=== PATIENT | female | born 1940 | race African-American/Black ===

== ENCOUNTER 2021-01-25 17:15 | Emergency (ER) | payer OTHER, MEDICAID ==
[~2021-01-25] VITALS: Ht 152.4 cm; Wt 83.5 kg
--- NOTE | 2021-01-25 17:16 | NUR ---
PATIENT TAKEN TO ER BED 9
[2021-01-25 17:26] VITALS: BP 131/45
--- NOTE | 2021-01-25 17:26 | NUR ---
Dr. Alcantara is evaluating the patient at bedside.
--- NOTE | 2021-01-25 17:36 | NUR ---
80/F biba from home with c/o shakiness. Patient states she began feeling shaky and "unwell" at home and attempted to check her blood sugar but states she was unable to. Patient became worrisome and called 911, per EMS patients blood sugar was 352 on scene. Patient denies pain but states she still feels unwell, blood sugar upon arrival 352. Patient placed in gown on bedside groundwater monitoring technician, patient alert and oriented x4, showing no signs of hyperglycemia, Dr. Alcantara aware of patient condition.
--- NOTE | 2021-01-25 18:02 | NUR ---
Labs collected bedside and handed to agricultural labor camp manager.
[2021-01-25 18:31] LABS: BASOPHILS # (AUTO) 0.1 K/uL (0.00-0.22); EOSINOPHILS # (AUTO) 0.1 K/uL (0-0.4); EOSINOPHILS % (AUTO) 2.6 % (0.0-4.0); HEMATOCRIT 35.5 % (36-48); HEMOGLOBIN 11.6 g/dL (12.0-16.0); LYMPHOCYTES % (AUTO) 20.5 % (20.5-51.1); MEAN CORPUSCULAR HEMOGLOBIN 30 pg (27-31); MEAN CORPUSCULAR HGB CONC 33 g/dL (33-37); MEAN CORPUSCULAR VOLUME 91.4 fL (80-94); MONOCYTES # (AUTO) 0.4 K/uL (0.8-1.0); MONOCYTES % (AUTO) 8.1 % (1.7-9.3); NEUTROPHILS # (AUTO) 3.5 K/uL (1.8-7.7); NEUTROPHILS % (AUTO) 67.8 % (42.2-75.2); PLATELET COUNT (AUTO) 181 K/uL (140-450); RED BLOOD CELL COUNT(AUTO) 3.88 MIL/uL (4.20-5.40); RED CELL DISTRIBUTION WIDTH 13.6 % (11.6-13.7); WHITE BLOOD COUNT (AUTO) 5.1 K/uL (4.8-10.8)
[2021-01-25 19:01] LABS: ALBUMIN 3.8 g/dL (3.4-5.0); ASPARTATE AMINOTRANSFERASE 13 U/L (15-37); CARBON DIOXIDE 30.1 mmol/L (21-32); CHLORIDE 102 mmol/L (98-107); CREATININE 1.5 mg/dL (0.6-1.3); GLUCOSE 316 mg/dL (74-106); POTASSIUM 4.1 mmol/L (3.5-5.1); SODIUM SERUM 139 mmol/L (136-145); TOTAL BILIRUBIN 0.2 mg/dL (0.0-1.0); UREA NITROGEN, BLOOD 40 mg/dL (7-18)
[2021-01-25 19:28] LABS: ACETONE, SERUM NEGATIVE (NEGATIVE)
--- NOTE | 2021-01-25 19:30 | NUR ---
RECEIVED REPORT FROM TAHIR GALDAMEZ FOR CONTINUITY OF CARE AT THIS TIME
[2021-01-25] MEDS ORDERED: cefTRIAXone 1,000 MG in LIDOCAINE MPF 1% 2.1 ML IM ONE (19:45)
[2021-01-25] MEDS ORDERED: CEPH-588 PO (20:05)
[2021-01-25] MEDS ORDERED: LIDOCAINE MPF 1% 5 ML ONE (20:08)
[2021-01-25] MEDS ORDERED: cefTRIAXone 1,000 MG VIAL ONE (20:08)
[2021-01-25 20:13] LABS: APPEARANCE,URINE SL CLOUDY (CLEAR); BILIRUBIN,URINE NEGATIVE (NEGATIVE); BLOOD, URINE TRACE-I (NEGATIVE); COLOR,URINE YELLOW (YELLOW); LEUKOCYTE ESTERASE ,URINE TRACE (NEGATIVE); NITRITE, URINE POSITIVE (NEGATIVE); UGLUCOSE 3+ (NEGATIVE)
[2021-01-25 20:40] VITALS: BP 120/45
--- NOTE | 2021-01-25 20:40 | NUR ---
Patient discharged with v/s stable. Written and verbal after care instructions given and explained. Patient alert, oriented and verbalized understanding of instructions. Ambulatory with steady gait. All questions addressed prior to discharge. ID band removed. Patient advised to follow up with PMD. Patient educated on indication of medication including possible reaction and side effects. Opportunity to ask questions provided and answered.
== END 2021-01-25 20:40 | disposition home or self-care (01) ==
LOC: MED 17:15
DX: N39.0 Urinary tract infection, site not specified (principal); R53.1 Weakness; R05 Cough; E11.9 Type 2 diabetes mellitus without complications; I10 Essential (primary) hypertension; Z79.899 Other long term (current) drug therapy; Z85.3 Personal history of malignant neoplasm of breast; Z90.710 Acquired absence of both cervix and uterus; Z90.49 Acquired absence of other specified parts of digestive tract; Z98.890 Other specified postprocedural states
CPT/HCPCS: 36415; 71045; 80053; 81001; 82009; 82948; 85025; 87086; 96372; 99284; J0696; J2001